=== PATIENT | female | born 1955 | race Caucasian/White ===

== ENCOUNTER 2018-10-28 18:27 | Observation (INO) | payer BC, OTHER, SELFPAY ==
[2018-10-28 19:07] LABS: #Basophils 0.1 thou/uL (0.0-0.2); #Eosinphils 0.1 thou/uL (0.0-0.7); #Lymphocytes 2.1 thou/uL (1.20-3.40); #Monocytes 0.6 thou/uL (0.11-0.59); #Neutrophils 7.9 thou/uL (1.40-6.50); %Basophils 0.6 % (0.0-1.0); %Eosinophils 0.6 % (0.0-10.0); %Lymphocytes 19.3 % (21.0-51.0); %Monocytes 5.9 % (0.0-10.0); %Neutrophils 73.5 % (42.0-75.0); Hemoglobin 15.4 g/dL (12.0-16.0); Mean Corpuscular HGB CONC 33.5 g/dL (32.0-36.0); Mean Corpuscular Hemoglobin 31.3 pg (27.0-31.0); Mean Corpuscular Volume 93.2 fL (78.0-98.0); Platelet Count 265 thou/uL (130-400); RBC Distribution Width 11.2 % (11.5-14.5); Red Blood Cell (RBC) Count 4.92 mill/uL (4.20-5.40); White Blood Cell (WBC) Count 10.7 thou/uL (4.8-10.8)
[2018-10-28 19:29] LABS: ALT (SGPT) 15 U/L (8-55); AST (SGOT) 22 U/L (5-34); Albumin 4.5 g/dL (3.4-4.8); Alkaline Phosphatase 102 U/L (40-150); Anion Gap 17 mmol/L (10-20); BUN (Urea Nitrogen) 13 mg/dL (9.8-20.1); Bilirubin, Total 0.4 mg/dL (0.2-1.2); Calc. Creatinine Clearance 0 mL/min (70-130); Calcium 10.2 mg/dL (7.8-10.44); Carbon Dioxide 23 mmol/L (23-31); Chloride 104 mmol/L (98-107); Estimated GFR-MDRD 74; Globulin 3.3 g/dL (2.4-3.5); Glucose 95 mg/dL (80-115); Potassium 3.8 mmol/L (3.5-5.1); Protein, Total 7.8 g/dL (6.0-8.3); Sodium 140 mmol/L (136-145)
--- NOTE | 2018-10-28 19:52 | CT ---
CT BRAIN WITHOUT CONTRAST: 10/28/18 HISTORY: Confusion, altered mental status. FINDINGS: No evidence of infarct, hemorrhage, midline shift, or abnormal extra-axial fluid collections are seen . the ventricular size is appropriate and the basilar cisterns patent. The bony calvarium is intact. The visualized paranasal sinuses and mastoid air cells are well aerated. IMPRESSION: No CT evidence of acute intracranial process. POS: [facility]
[2018-10-28 20:32] LABS: Bilirubin Negative (Negative); Blood, Urine Trace (Negative); Clarity CLOUDY (Clear); Glucose, Urine (Dipstick) Negative (Negative); Leukocyte Small (Negative); Nitrite Negative (Negative); Protein, Urine (Dipstick) Negative (Neg-Trace); Specific Gravity, Urine 1.011 (1.002-1.036)
[2018-10-28 20:33] LABS: Bacteria/HPF Rare-Few HPF (None Seen); Hyaline Casts/LPF 7-10 HYALINE CAST LPF (0-3 Hyaline); Pathc Cast-AUWi Flag 0.58 (0-2.49); RBC/HPF 0-3 HPF (0-3)
--- NOTE | 2018-10-28 20:48 | PDOC.FPRHP ---
- History of Present Illness Chief Complaint: Amnesia History of Present Illness: 63 yo F with PMH of kidney stones presents for amnesia since this morning. She remembers waking up early this morning, but does not remember what happened throughout the day. Per the ED, her daughter (a Physician's office assistant receptionist) called EMS after a phone conversation where she was making odd comments and acting confused. Patient denies any pain. Only positive symptom is nausea. In the ER, Ct head was normal, CBC and CMP were normal. EKG NSR. - Allergies/Adverse Reactions Allergies Allergy/AdvReac Type Severity Reaction Status Date / Time Penicillins Allergy Verified 10/28/18 22:25 - Home Medications Medication Instructions Recorded Confirmed Type No Known 10/28/18 10/28/18 History - History PMHx: Hx kidney stones, hx UTI PSHx: patient reports hx of lithotripsy/nephrolithotomy FHx: -Cancer: father (lung), uncle (pancreatic) -Cardiac: father had bypass Denies fam hx of DM or stroke Social: 40 years 1/2 ppd, 20 PY hx current smoker, denies alcohol or drug use - Review of Systems General: denies: fever/chills, weight/appetite/sleep changes Eyes: denies: eye pain, vision changes ENT: denies: nasal congestion, rhinorrhea Respiratory: denies: cough, congestion, shortness of breath Cardiovascular: denies: chest pain Gastrointestinal: reports: nausea. denies: vomiting, diarrhea, constipation, abdominal pain, GI bleeding Genitourinary: denies: incontinence, dysuria Skin: denies: rashes, lesions Musculoskeletal: denies: pain, tenderness Neurological: denies: numbness, syncope, seizure, weakness Psychological: denies: anxiety, depression - Vital signs BP: [158/71] HR: [78] RR: [20] Tmax: [97.9] Pox: [96]% on [RA] Wt: [68 kg] - Physical Exam Constitutional: NAD, well developed -Constitutional: Alert and oriented to place and person and president, knows the month but not day or year HEENT: normocephalic and atraumatic, PERRLA, EOMI, conjunctiva clear, no scleral icterus, grossly normal hearing, normal nasal mucosa, oropharynx clear, other (lateral horizontal nystagmus 4 beats bilaterally) Neck: supple, other (no LAD) Heart: RRR, pulses present, no edema, other (no rubs/gallops) -Heart: systolic murmur 2/6 Lungs: CTAB, no respiratory distress, good air movement, no rales/rhonchi, no wheezing Abdomen: soft, non-tender, bowel sounds present, no masses/distention Musculoskeletal: normal structure, normal tone, ROM grossly normal Neurological: no focal deficit, CN II-XII intact Skin: no rash/lesions, good turgor, capillary refill <2 seconds Heme/Lymphatic: no unusual bruising or bleeding, no petechia Psychiatric: normal mood and affect, good judgment and insight, other (intact remote memory, no memory from today or how she arrived at the ED. AO to person and place.) FMR H&P: Results - Labs Result Diagrams: 10/28/18 18:59 10/28/18 18:59 Lab results: WBC 10.7 thou/uL (4.8-10.8) 10/28/18 18:59 Hgb 15.4 g/dL (12.0-16.0) 10/28/18 18:59 Hct 45.9 % (36.0-47.0) 10/28/18 18:59 MCV 93.2 fL (78.0-98.0) 10/28/18 18:59 Plt Count 265 thou/uL (130-400) 10/28/18 18:59 Neutrophils % 73.5 % (42.0-75.0) 10/28/18 18:59 Sodium 140 mmol/L (136-145) 10/28/18 18:59 Potassium 3.8 mmol/L (3.5-5.1) 10/28/18 18:59 Chloride 104 mmol/L (98-107) 10/28/18 18:59 Carbon Dioxide 23 mmol/L (23-31) 10/28/18 18:59 BUN 13 mg/dL (9.8-20.1) 10/28/18 18:59 Creatinine 0.78 mg/dL (0.6-1.1) 10/28/18 18:59 Glucose 95 mg/dL (80-115) 10/28/18 18:59 Calcium 10.2 mg/dL (7.8-10.44) 10/28/18 18:59 Total Bilirubin 0.4 mg/dL (0.2-1.2) 10/28/18 18:59 AST 22 U/L (5-34) 10/28/18 18:59 ALT 15 U/L (8-55) 10/28/18 18:59 Alkaline Phosphatase 102 U/L (40-150) 10/28/18 18:59 Serum Total Protein 7.8 g/dL (6.0-8.3) 10/28/18 18:59 Albumin 4.5 g/dL (3.4-4.8) 10/28/18 18:59 Urine Ketones 40 mg/dL (Negative) H 10/28/18 20:20 Urine Blood Trace (Negative) H 10/28/18 20:20 Urine Nitrite Negative (Negative) 10/28/18 20:20 Ur Leukocyte Esterase Small (Negative) H 10/28/18 20:20 Urine RBC 0-3 HPF (0-3) 10/28/18 20:20 Urine WBC 7-10 HPF (0-3) H 10/28/18 20:20 Ur Squamous Epith Cells 7-10 HPF (0-3) H 10/28/18 20:20 Urine Bacteria Rare-Few HPF (None Seen) 10/28/18 20:20 - EKG Interpretation EKG: NSR - Radiology Interpretation CT scan - head Status: image reviewed by me, report reviewed by me Additional comment: Neg for acute process FMR H&P: A/P - Problem List (1) Transient global amnesia Current Visit: Yes Status: Acute Code(s): G45.4 - TRANSIENT GLOBAL AMNESIA (2) HTN (hypertension) Current Visit: Yes Status: Chronic Code(s): I10 - ESSENTIAL (PRIMARY) HYPERTENSION Qualifiers: Hypertension type: essential hypertension Qualified Code(s): I10 - Essential (primary) hypertension (3) Tobacco abuse Current Visit: Yes Status: Chronic Code(s): Z72.0 - TOBACCO USE (4) History of nephrolithiasis Current Visit: Yes Status: Chronic Code(s): Z87.442 - PERSONAL HISTORY OF URINARY CALCULI (5) Hx of nephrolithotomy with removal of calculi Current Visit: Yes Status: Chronic Code(s): Z98.890 - OTHER SPECIFIED POSTPROCEDURAL STATES; Z87.442 - PERSONAL HISTORY OF URINARY CALCULI - Plan Likely Transient Global Amnesia -Amnesia of today's events after waking with no symptoms this AM -No focal symptoms, AxO to person and place -Differential include seizure, head injury, carbon monoxide exposure, intoxication, drug/alcohol withdrawal, HSV encephalitis, TIA, delirium, meningitis -CT head normal, CBC/CMP normal, no neck stiffness -unlikely TIA, as TIA rarely has isolated amnesia w/o other focal deficits -AM MRI, CTA Head/neck with and without -Echo in AM -Am FLP and TSH -ASA 325 mg given now, then 81 mg daily -HH diet -UA possible contaminant, does not appear to be infectious -Consider Neuro consult in AM Hypertension -Continue to monitor -PRNs for blood pressure > 180/110 Tobacco abuse -20 py history, 1/2 ppd -Encourage cessation Hx UTI and nephrolithiasis and nephrolithotomy -aware Diet: HH Dispo: admit to medical obs DVT PPx: lovenox GI PPX: none PCP: Jose R FMLolis H&P: Upper Level - Pertinent history 63F p/w one day history of memory loss. Patient was functioning at her baseline yesterday, witnessed by her sister. Patient remembers awakening today but cannot recall anything else from today's activities. Sister reports the patient was confused on the phone and could not answer straightforward questions. At no point did patient slur her words. Patient and sister deny any recent trauma or concussion. Patinet denies any recent episodes of headache. No significant social stressors at home. Patient does not take any medication or OTC supplements. She is alert and oriented in the exam room and in no acute distress. Sister reports no gross or fine motor deficits. Patients halfway memory is intact as she can recite her PMH and PCP. - Pertinent findings Vital signs are normal CT brain: negative for intracranial pathology CBC, CMP, and UA appear normal Gen: A&Ox3 CV: RRR, no murmurs Pulm: CTA-B Neuro: CNII-XII intact EKG: NSR with no ST abnormalities - Plan Date/Time: 10/28/182047 I, Eliceo Chang, have evaluated this patient and agree with findings/plan as outlined by recording studio intern resident. Pertinent changes/additions are listed here. Transient global amnesia: sudden onset that is unassociated with neurological deficits or other symptoms. Patient is very healthy with no cardiovascular risk factors and takes no medications. DDX includes seizure DO, concussion, TIA. Does not appear to have an infectious etiology and her laboratory studies are all normal. We will pursue full stroke w/u and f/u accordingly. Patient seen and examined with attending physician, Dr. Mckeon, who agrees with assessment and plan. Addendum - Attending - Attending Attestation Date/Time: 10/29/18 3918 I personally evaluated the patient and discussed the management with Dr. Chang/ Loc I agree with the History, Examination, Assessment and Plan documented above with any addition or exceptions noted below.
[2018-10-28] MEDS ORDERED: Enoxaparin Sodium 40 MG/0.4 ML SYRINGE SC SCH ×2 (22:20→22:45)
[2018-10-28] MEDS ORDERED: hydrALAZINE 20 MG/ML VIAL SLOW IVP PRN (22:32)
[2018-10-28] MEDS ORDERED: Acetaminophen 325 MG TAB PO PRN (22:32)
[2018-10-28] MEDS ORDERED: Ondansetron ODT 4 MG TAB PO PRN (22:32)
[2018-10-28] MEDS ORDERED: Aspirin 325 mg Enteric Coated Tablet PO SCH (22:45)
[2018-10-29 03:24] LABS: Medtox Reader # READER 4
[2018-10-29 03:25] LABS: Amphetamine Not Detected (NotDetected); Barbiturates Screen Not Detected (NotDetected); Benzodiazepine Screen Not Detected (NotDetected); Cocaine Metabolite Screen Not Detected (NotDetected); Medtox Control Line Valid? VALID (VALID); Methadone Not Detected (NotDetected); Methamphetamine Not Detected (NotDetected); Opiate Screen Not Detected (NotDetected); Oxycodone Screen Not Detected (NotDetected); Phencyclidine (PCP) Not Detected (NotDetected); THC/Cannabinoid Screen Not Detected (NotDetected); Tricyclic Screen Not Detected (NotDetected)
--- NOTE | 2018-10-29 06:11 | PDOC.FM ---
- Subjective Subjective: Patient doing well this AM. No significant overnight events. Patient reports that the last thing she remembers prior to the amnestic event is talking to her sister. After her sister reportedly left the house, she is unable to recall the events leading up to her hospitalization. Patient states she has never had an episode like this in the past. She denies any seizure, migraine, or TIA history. She is an otherwise healthy 63 year old female. She states her BP's are always low in the low 100's. She has never had problems with low BG in the past. Today, she is oriented x3. She is requesting to go home. She denies any focal deficits. - Objective MAR Reviewed: Yes Vital Signs & Weight: Vital Signs (12 hours) Temp Pulse Resp BP Pulse Ox 10/29/18 01:10 98 F 86 16 100/61 96 Weight Weight 70.5 kg Result Diagrams: 10/29/18 08:02 10/28/18 18:59 EKG Reviewed by me: Yes Radiology Reviewed by me: Yes Phys Exam - Physical Examination Constitutional: NAD HEENT: moist MMs Neck: supple Respiratory: clear to auscultation bilateral Cardiovascular: RRR systolic murmur Gastrointestinal: soft, non-tender, no distention, positive bowel sounds Musculoskeletal: no edema, pulses present Neurological: non-focal Psychiatric: normal affect, A&O x 3 Skin: no rash, cap refill <2 seconds Dx/Plan (1) Transient global amnesia Code(s): G45.4 - TRANSIENT GLOBAL AMNESIA Status: Acute (2) HTN (hypertension) Code(s): I10 - ESSENTIAL (PRIMARY) HYPERTENSION Status: Chronic Qualifiers: Hypertension type: essential hypertension Qualified Code(s): I10 - Essential (primary) hypertension (3) History of nephrolithiasis Code(s): Z87.442 - PERSONAL HISTORY OF URINARY CALCULI Status: Chronic (4) Hx of nephrolithotomy with removal of calculi Code(s): Z98.890 - OTHER SPECIFIED POSTPROCEDURAL STATES; Z87.442 - PERSONAL HISTORY OF URINARY CALCULI Status: Chronic (5) Tobacco abuse Code(s): Z72.0 - TOBACCO USE Status: Chronic - Plan Plan: Likely Transient Global Amnesia -Amnesia starting mid morning; no similar events in the past -No focal symptoms at time of episode -No hx of seizures, migraines or TIA's -No associated symptoms -Differential include seizure, head injury, carbon monoxide exposure, intoxication, drug/alcohol withdrawal, HSV encephalitis, TIA, delirium, meningitis -CT head normal, CBC/CMP normal, no neck stiffness -MRI, CTA Head/neck with and without pending this AM -Echo this AM d/t murmur heard on initial exam -ASA 325 mg given now, then 81 mg daily -HH diet -UA possible contaminant, does not appear to be infectious Hypertension -Continue to monitor -PRNs for blood pressure > 180/110 -BP appears to be on the lower end; patient reports her BP normally runs in low 100's systolic. Tobacco abuse -20 py history, 1/2 ppd -Encourage cessation Hx UTI and nephrolithiasis and nephrolithotomy -aware Systolic murmur -Echo results pending Diet: HH DVT PPx: lovenox GI PPX: none PCP: Jose R Dispo: Patient stable. Continue workup as above. Possible d/c pending results of workup. Addendum - Attending - Attending Attestation Date/Time: 10/29/18 [id number] I personally evaluated the patient and discussed the management with Dr. Clark I agree with the History, Examination, Assessment and Plan documented above with any addition or exceptions noted below. Discussed with Patient and family will look for identifiable causes amnesia. Patient with full recovery memory within 24 hour consistent with Transient Global Amnesia. Discussed f/u with PCP and Neurology referral prn and advised low incidence of rpossibel epeated episode. Pending negative MRI dismiss home.
[2018-10-29 08:27] LABS: #Eosinphils 0.1 thou/uL (0.0-0.7); #Monocytes 0.6 thou/uL (0.11-0.59); #Neutrophils 4.4 thou/uL (1.40-6.50); %Basophils 0.6 % (0.0-1.0); %Eosinophils 1.7 % (0.0-10.0); %Lymphocytes 28.5 % (21.0-51.0); %Monocytes 7.9 % (0.0-10.0); %Neutrophils 61.3 % (42.0-75.0); Hemoglobin 13.7 g/dL (12.0-16.0); Mean Corpuscular HGB CONC 32.2 g/dL (32.0-36.0); Mean Corpuscular Volume 93.2 fL (78.0-98.0); Mean Platelet Volume 7.1 fL (7.4-10.4); Platelet Count 248 thou/uL (130-400); RBC Distribution Width 11.3 % (11.5-14.5); Red Blood Cell (RBC) Count 4.59 mill/uL (4.20-5.40); White Blood Cell (WBC) Count 7.1 thou/uL (4.8-10.8)
[2018-10-29 08:46] LABS: Cardiac Risk 3.5 (Less than 4.5)
[2018-10-29] MEDS ORDERED: Enoxaparin Sodium 40 MG/0.4 ML SYRINGE SC SCH ×2 (09:00)
[2018-10-29] MEDS ORDERED: Aspirin 81 mg Enteric Coated Tablet PO SCH (09:00)
[2018-10-29] MEDS: Lorazepam 0.5 MG TAB PO PRN ×2 (10:12→10:15)
[2018-10-29 11:20] VITALS: BP 100/66; TEMP 98
--- NOTE | 2018-10-29 11:26 | MRI ---
BRAIN MRI WITHOUT CONTRAST: Date: 10/29/18 COMPARISON: Head CT previous day. CLINICAL HISTORY: Confusion, altered mental status, with transient global amnesia. FINDINGS: There is normal size of ventricular system. No acute territorial infarction, mass effect, or midline shift. There are no significant signal abnormalities of the brain parenchyma. There is mild generaliz ed volume loss. Khang cisterna magna is present. IMPRESSION: No acute intracranial abnormalities. POS: [facility]
--- NOTE | 2018-10-29 12:26 | CT ---
CT HEAD NONCONTRAST CTA [place] WITH 3D VOLUME RENDERING WITH CONTRAST CTA NECK WITH 3D VOLUME RENDERING WITH CONTRAST: Date: 10/29/18 CLINICAL HISTORY: Memory loss. Disorientation. Clinical concern for TIA/stroke. FINDINGS: Noncontrast head CT reveals no evidence of acute intracranial hemorrhage, mass effect, or midline ignacia ft. There is trent cisterna magna. Incidental note of prominent volume of the thyroid gland. There is a focal hypodensity of the left th yroid lobe, which may represent a nodule, incompletely assessed on the basis of this exam. Atherosclerosis of the imaged aortic arch is present. There is a focal narrowing of the tortuous orig in of the right vertebral artery, with a moderate to severe focal stenosis suggested. The left verteb ral artery also reveals a focal moderate stenosis due to calcified and noncalcified plaque at its [place] gin. Limited assessment of the left subclavian artery due to adjacent high density streak artifact fr om venous contrast. There is mild atherosclerotic irregularity of the right subclavian artery. No hem odynamically significant stenosis of the right common or right cervical internal carotid artery. Mild atherosclerotic plaque with calcification is present at the right carotid bulb. Evaluation of the le ft common carotid and cervical internal carotid artery reveals mild atherosclerotic irregularity at t he level of the carotid bulb, although no high grade stenosis. There is calcification at each carotid siphon, mild in degree. CTA [place] reveals no significant stenosis or occlusion of the DOLORES, MCA, or ORTHOTICS TECHNICIAN. There is c ongenital appearing hypoplastic A1 segment of the left DOLORES. Anterior communicating artery is unremark able. There is a 2-3 mm focal outpouching near, but not definitively involving, the origin of the rig ht posterior communicating artery and therefore this is suspected to represent a posterior communicat ing artery region aneurysm. Basilar artery is patent. There is a type variant circulation with a prominent left posterior communicating artery and diminutive left P1 segment. IMPRESSION: 1. Scattered atherosclerosis is demonstrated. There is a moderate to severe focal stenosis of the to rtuous origin of the right vertebral artery and focal moderate narrowing is demonstrated at the origi n of the left vertebral artery. 2. 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 Recommend neuro surgical consultation for further care. Additional details are described above. POS: [facility]
[2018-10-29 13:25] LABS: Hemoglobin A1c 5.6 % (4.0-6.0)
--- NOTE | 2018-10-30 16:51 | DIS ---
DATE OF ADMISSION: 10/28/2018 DATE OF DISCHARGE: 10/29/2018 DISCHARGE ATTENDING: Ryne Mckeon MD. RESIDENT: Kathrin Vallejo MD, PGY-1. CONSULTS: None. PROCEDURES: None. IMAGIN. Brain CT (10/28/2018), no evidence of acute intracranial processes. 2. Brain MRI (10/29/2018), no acute intracranial abnormalities. Khang cisterna magna is present. Mild generalized volume loss. 3. CT [place] angio with contrast (10/29/2018), scattered atherosclerosis. [id number] focal stenosis of the right vertebral artery. Incidental node 2 to 3 mm of the right posterior communicating artery. PRIMARY DIAGNOSIS: Transient global amnesia. SECONDARY DIAGNOSES: 1. Hypertension. 2. History of nephrolithiasis. 3. History of nephrolithotomies, movable calculi. 4. Tobacco abuse. DISCHARGE MEDICATIONS: 1. Aspirin 81 mg p.o. daily. DISCONTINUED MEDICATIONS: None. HISTORY OF PRESENT ILLNESS/HOSPITAL COURSE: Ms. Zimmer is a 63-year-old female with history of tobacco abuse, who presented to the ED for amnesia on the evening of 10/28/18. The day before she was functioning at baseline, as witnessed by family members. In the ED she was unable to recall events of the day with the only thing she's able to remember is waking up that morning. She had no slurring of speech or other focal neurologic findings. No recent head trauma. Patient denied any medical history aside from tobacco use. In the ED, imaging was negative for hemorrhagic stroke. She was admitted to the hospital for further workup of TIA and CVA rule out which was also negative. Currently a transthoracic echocardiogram is pending. In addition, further lab work reveal any anything that would explain her amnestic event. She remained at her baseline, did not experience any further amnesia during hospital stay. She never regained her memory on day of amnesia. Upon discharge, the patient was stable and all questions were answered. Discussion had with the patient in order to encourage tobacco cessation. DISPOSITION: Stable. DISCHARGE INSTRUCTIONS: 1. Location: Home. 2. Diet, heart healthy. 3. Home activity ad marcia. FOLLOWUP: 1. Please follow up with PCP, Dr. Odell, in 3 to 5 days. 2. Please consider following up with Neurosurgery for findings listed and the CT [place] angio. Please discuss this with Dr. Odell, she had to proceed next. 3. Someone for our team will call you with echo results. Addendum: Called patient on 10/30 with results of echo which were negative aside from low-normal ejection fraction. Explained this is not likely the cause of her amnestic event. Re-explained results of neuroimaging recommending follow up neruosurgery for finding of incidental node found in brain. Advised to discuss this referral with Dr. Odell. Answered all questions. Job ID: [id number] [facility] CENTERAida
--- NOTE | 2018-11-04 17:05 | EKG ---
Test Reason : Blood Pressure : / mmHG Vent. Rate : 068 BPM Atrial Rate : 068 BPM P-R Int : 160 ms QRS Dur : 062 ms QT Int : 392 ms P-R-T Axes : 060 050 024 degrees QTc Int : 416 ms Normal sinus rhythm Normal ECG Confirmed by NITZA MCKEON D.O. ([id number]), telegraph editor MATEUSZ SHARMA ([id number]) on 11/04/2018 5:04:45 PM Referred By: Confirmed By:NITZA MCKEON D.O.
== END 2018-10-29 14:12 | disposition home or self-care (01) ==
LOC: ERS 18:27 → T4-B 20:42 → INTOOBSV 20:42
PROVIDERS: ADMIT Family Medicine; ATTEND Family Medicine
DX: G45.4 Transient global amnesia (principal); I10 Essential (primary) hypertension; F17.210 Nicotine dependence, cigarettes, uncomplicated; Z88.0 Allergy status to penicillin; Z87.442 Personal history of urinary calculi; Z79.82 Long term (current) use of aspirin
CPT/HCPCS: 36415; 36416; 70450; 70496; 70498; 70551; 80053; 80061; 80306; 81003; 81015; 83036; 84443; 85025; 93005; 93306; 94760; 96372; G0378; J1650

== ENCOUNTER 2019-10-19 08:12 | Outpatient (CLI) | payer BC ==
[2019-10-19] MEDS ORDERED: Iopamidol-370 76% 500 ML 1 ML ONE (09:13)
--- NOTE | 2019-10-19 09:56 | CT ---
EXAM: CT ANGIOGRAM OF THE HEAD INDICATION: Aneurysm. COMPARISON: 10/29/2018. TECHNIQUE: CT angiogram of the head and neck are performed in the axial plane. Three-dimensional reformatted sumeet ges are submitted for interpretation. FINDINGS: CTA OF THE HEAD WITH AND WITHOUT CONTRAST: NONCONTRAST HEAD CT: No parenchymal hemorrhage. Successful hematoma. No midline shift. Basilar cisterns are patent. Brain volume, age-appropriate. Cortical alegria-white matter differentiation preserved. No hydrocephalus. Calvarium is intact. Adequate aeration of the sinuses and mastoid air cells. POSTCONTRAST CT OF BRAIN: Pathologic enhancement: No pathologic enhancement the brain. CTA OF THE BRAIN: Intracranial internal carotid arteries:Appropriate enhancement and luminal diameter. Anterior circulation: Symmetric enhancement and luminal diameter the M1 segments and proximal MCA bra nches. There is appropriate enhancement and luminal diameter of both A1 segments and proximal A2 segments. 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 Intracranial vertebral arteries: Appropriate enhancement and luminal diameter. Bilateral PICA artery origins are unremarkable. Posterior circulation: Appropriate enhancement and luminal diameter of the basilar artery. Right P1 s egment has appropriate enhancement and luminal diameter. Persistent origin of the left OCCUPATIONAL HYGIENIST. Incidentals: Redemonstration of a 2 to 3 mm focal outpouching involving the medialmost aspect of the right A1 segment (axial image 58, series 6; coronal image 39, series 38). IMPRESSION: 1. No hemodynamically significant stenosis. 2. Essentially stable 2 to 3 mm focal outpouching involving the right aspect of the [place], along the medial aspect of the right A1 segment. Transcribed Date/Time: 10/19/2019 10:11 AM
== END 2019-10-19 08:13 | disposition home or self-care (01) ==
LOC: BICCT 08:12
PROVIDERS: ATTEND Neurological Surgery
DX: I67.1 Cerebral aneurysm, nonruptured (principal); G93.89 Other specified disorders of brain
CPT/HCPCS: 70496; 82565; Q9967